=== PATIENT | female | born 1975 | race Caucasian/White ===

== ENCOUNTER 2019-01-04 10:46 | Outpatient (CLI) | payer OTHER | END 2019-01-04 10:49 | disposition home or self-care (01) | LOC: SONOGRAMA 10:46 | DX: N60.11 Diffuse cystic mastopathy of right breast (principal); N60.12 Diffuse cystic mastopathy of left breast; N63.11 Unspecified lump in the right breast, upper outer quadrant ==

== ENCOUNTER → 2019-06-14 | Day surgery (SDC) | payer OTHER | END | disposition home or self-care (01) | LOC: ADM 06-13 08:00 → CIR.AMB 06:24 | PROVIDERS: Plastic Surgery; Surgery | PROC: 0HBV0ZZ Excision of Bilateral Breast, Open Approach (ICD-10-PCS; 2019-06-14) | PROC: 0HBT0ZZ Excision of Right Breast, Open Approach (ICD-10-PCS; principal; 2019-06-14 23:45) | PROC: 07B50ZZ Excision of Right Axillary Lymphatic, Open Approach (ICD-10-PCS; 2019-06-14 23:45) | DX: C50.411 Malignant neoplasm of upper-outer quadrant of right female breast (principal); N62 Hypertrophy of breast; Z90.11 Acquired absence of right breast and nipple ==

== ENCOUNTER 2019-07-05 13:02 | Outpatient (CLI) | payer OTHER | END 2019-07-05 13:10 | disposition home or self-care (01) | LOC: SONOGRAMA 13:02 | DX: N61.1 Abscess of the breast and nipple (principal); C50.411 Malignant neoplasm of upper-outer quadrant of right female breast ==

== ENCOUNTER 2021-03-10 17:21 | Inpatient (IN) | payer OTHER ==
[~2021-03-10] VITALS: Ht 165.1 cm; Wt 95.3 kg
== END 2021-03-11 13:38 | disposition home or self-care (01) | DRG 761 ==
LOC: ER 17:21 → OB/GYN 18:44 → SEC-K 22:20 → OB/GYN 22:21
PROVIDERS: ADMIT Obstetrics & Gynecology; ATTEND Obstetrics & Gynecology
DX: N83.519 Torsion of ovary and ovarian pedicle, unspecified side (principal)

== ENCOUNTER 2024-04-15 11:58 | Outpatient (CLI) | payer OTHER | END 2024-04-15 12:10 | disposition home or self-care (01) | LOC: MAMO-SONO 11:58 | PROVIDERS: ATTEND General Practice | DX: Z12.31 Encounter for screening mammogram for malignant neoplasm of breast (principal); Z00.8 Encounter for other general examination; Z68.39 Body mass index [BMI] 39.0-39.9, adult; Z85.3 Personal history of malignant neoplasm of breast; Z80.3 Family history of malignant neoplasm of breast; Z80.0 Family history of malignant neoplasm of digestive organs ==